=== PATIENT | female | born 1975 | race Caucasian/White ===

== ENCOUNTER 2017-11-08 15:36 | Emergency (ER) | payer SELFPAY ==
[2017-11-08] MEDS ORDERED: HYDROMORPHONE HCL INJ/PF 2 MG/ML AMPULE IV ONE (15:59)
[2017-11-08] MEDS ORDERED: ONDANSETRON HCL INJ/PF 4 MG/2 ML SDV IV ONE (15:59)
[2017-11-08] MEDS ORDERED: KETOROLAC TROMETHAMINE INJ/PF 30 MG/1 ML SDV IV ONE (15:59)
--- NOTE | 2017-11-08 16:00 | ER Document Report ---
ED Medical Screen (RME) - General Chief Complaint: Shoulder Pain Stated Complaint: LEFT SHOULDER/BACK PAIN Time Seen by Provider: 11/08/17 15:56 Mode of Arrival: Ambulatory Information source: Patient Notes: 42-year-old female presents with acute left chest pain, fever, chills. She was diagnosed with pneumonia on November 03 and started on doxycycline. Patient states she still spiking fevers. Patient appears uncomfortable in triage. TRAVEL OUTSIDE OF THE [place] IN LAST 30 DAYS: No - Related Data Allergies/Adverse Reactions: morphine Allergy (Verified 11/08/17 15:45) Hives Past Medical History - Social History Chew tobacco use (# tins/day): No Frequency of alcohol use: None Pulmonary Medical History: Reports: Hx Pneumonia Renal/ Medical History: Denies: Hx Peritoneal Dialysis Past Surgical History: Reports: Hx Appendectomy, Hx Section, Hx Tubal Ligation Physical Exam - Vital signs Vitals: Temp Pulse Resp BP Pulse Ox 97.7 F 90 18 140/77 H 98 11/08/17 15:49 11/08/17 15:49 11/08/17 15:49 11/08/17 15:49 11/08/17 15:49 Course - Vital Signs Vital signs: Temp Pulse Resp BP Pulse Ox 97.7 F 90 18 140/77 H 98 11/08/17 15:49 11/08/17 15:49 11/08/17 15:49 11/08/17 15:49 11/08/17 15:49
--- NOTE | 2017-11-08 16:51 | RADIOLOGY REPORT (SQ) ---
EXAM DESCRIPTION: CHEST SINGLE VIEW COMPLETED DATE/TIME: 11/08/2017 4:30 pm REASON FOR STUDY: chest pain COMPARISON: None. EXAM PARAMETERS: NUMBER OF VIEWS: One view. TECHNIQUE: Single frontal radiographic view of the chest acquired. RADIATION DOSE: NA LIMITATIONS: None. FINDINGS: LUNGS AND PLEURA: No opacities, masses or pneumothorax. No pleural effusion. MEDIASTINUM AND HILAR STRUCTURES: No masses. Contour normal. HEART AND VASCULAR STRUCTURES: Heart normal in size. Normal vasculature. BONES: No acute findings. HARDWARE: None in the chest. OTHER: No other significant finding. IMPRESSION: NO ACUTE RADIOGRAPHIC FINDING IN THE CHEST. TECHNICAL DOCUMENTATION: JOB ID: [id number] [employer]- All Rights Reserved Reading location - IP/workstation name: [email or web address]
--- NOTE | 2017-11-08 16:52 | ER Document Report ---
ED General - General Chief Complaint: Shoulder Pain Stated Complaint: LEFT SHOULDER/BACK PAIN Time Seen by Provider: 11/08/17 15:56 Mode of Arrival: Ambulatory TRAVEL OUTSIDE OF THE [place] IN LAST 30 DAYS: No - HPI Notes: 42-year-old female presents with left-sided chest pain worse with breathing and movement for the past week. She was seen in the emergency department November 03. She had unremarkable chest x-ray and had a CTA which was negative for pulmonary embolism but showed a small left pleural effusion with infiltrates. She was discharged with doxycycline. She developed a fever of 102 2 days ago. She had an episode of severe sharp chest pain today throughout her left lower chest radiating to her back that caused her to fall to the ground. Denies syncope. No cough or hemoptysis. Denies shortness of breath. Denies any similar pain in the past. No trauma or rash. No leg swelling. - Related Data Allergies/Adverse Reactions: morphine Allergy (Verified 11/08/17 15:45) Hives Past Medical History - General Information source: Patient - Social History Smoking Status: Current Every Day Smoker Chew tobacco use (# tins/day): No Frequency of alcohol use: None Family History: Reviewed & Not Pertinent Patient has suicidal ideation: No Patient has homicidal ideation: No Pulmonary Medical History: Reports: Hx Pneumonia Renal/ Medical History: Denies: Hx Peritoneal Dialysis Past Surgical History: Reports: Hx Appendectomy, Hx Section, Hx Tubal Ligation Review of Systems - Review of Systems Notes: Constitutional: Negative for fever. HENT: Negative for sore throat. Eyes: Negative for visual changes. Cardiovascular: Positive for chest pain. Respiratory: Negative for shortness of breath. Positive for pain with breathing Gastrointestinal: Negative for abdominal pain, vomiting or diarrhea. Genitourinary: Negative for dysuria. Musculoskeletal: Negative for back pain. Skin: Negative for rash. Neurological: Negative for headaches, weakness or numbness. 10 point ROS negative except as marked above and in HPI. Physical Exam - Vital signs Vitals: Temp Pulse Resp BP Pulse Ox 97.7 F 90 18 140/77 H 98 11/08/17 15:49 11/08/17 15:49 11/08/17 15:49 11/08/17 15:49 11/08/17 15:49 - Notes Notes: PHYSICAL EXAMINATION: GENERAL: Well-appearing, well-nourished. Appears uncomfortable. HEAD: Atraumatic, normocephalic. EYES: Pupils equal round and reactive to light, extraocular movements intact, conjunctiva are normal. ENT: nares patent, oropharynx clear without exudates. Moist mucous membranes. NECK: Normal range of motion, supple without lymphadenopathy LUNGS: Breath sounds clear to auscultation bilaterally and equal. No wheezes rales or rhonchi. HEART: Regular rate and rhythm, significant left anterior and posterior chest wall tenderness. No rash or crepitus. No signs of trauma ABDOMEN: Soft, nontender, normoactive bowel sounds. No guarding, no rebound. No masses appreciated. EXTREMITIES: Normal range of motion, no pitting or edema. No cyanosis. NEUROLOGICAL: Cranial nerves grossly intact. Normal speech, normal gait. Normal sensory and motor exams. PSYCH: Normal mood, normal affect. SKIN: Warm, Dry, normal turgor, no rashes or lesions noted. Course - Re-evaluation Re-evalutation: 11/08/17 18:20 Pain out of proportion to exam. Chest x-ray clear without any sign of enlarging pleural effusion. Labs unremarkable except for low potassium of 2.9. She was given potassium and magnesium. She just had a CTA so I do not believe this needs to be repeated. There is no rash to suggest shingles. No crepitus or skin changes. Will add Zithromax on top of the doxycycline that she is already taking as well as additional few days of potassium. Discussed importance of primary care follow-up. At this time will discharge with return precautions and follow-up recommendations. Verbal discharge instructions given a the bedside and opportunity for questions given. Medication warnings reviewed. Patient is in agreement with this plan and has verbalized understanding of return precautions and the need for primary care follow-up in the next 24-72 hours. Voice dictation software was used. Chart was reviewed, but errors may exist. - Vital Signs Vital signs: Temp Pulse Resp BP Pulse Ox 97.7 F 90 18 140/77 H 98 11/08/17 15:49 11/08/17 15:49 11/08/17 15:49 11/08/17 15:49 11/08/17 15:49 - Laboratory Result Diagrams: 11/08/17 16:55 11/08/17 16:55 Laboratory results interpreted by me: 11/08/17 11/08/17 16:55 16:55 Hgb 11.7 L Hct 34.0 L Potassium 2.9 L* Direct Bilirubin 0.8 H AST 45 H ALT 67 H Alkaline Phosphatase 163 H Discharge - Discharge Clinical Impression: Pleuritic chest pain, Hypokalemia Condition: Stable Disposition: HOME, SELF-CARE Instructions: Pleurisy ([facility]) Additional Instructions: Take deep breaths to prevent any further lung collapse. Take old antibiotic and new antibiotic. Check the [facility] for the [facility] of your medications. Return for any worsening or concerning symptoms. Prescriptions: Azithromycin [Zithromax 250 mg Tablet] 250 mg PO ASDIR PRN #6 tablet PRN Reason: Potassium Chloride 20 meq PO DAILY #5 tab.er.prt Tramadol HCl [Ultram] 50 mg PO Q6 PRN #10 tablet PRN Reason: Forms: Return to Work Referrals: DEONNA GELLER MD [ACTIVE STAFF] - Follow up in 3-5 days
[2017-11-08 17:16] LABS: ABSOLUTE EOSINOPHILS # (AUTO) 0.1 10^3/uL (0.0-0.6); ABSOLUTE LYMPHOCYTES (AUTO) 1.6 10^3/uL (0.5-4.7); ABSOLUTE MONOCYTES (AUTO) 0.8 10^3/uL (0.1-1.4); ABSOLUTE NEUT (AUTO) 7.2 10^3/uL (1.7-8.2); BASOPHILS % (AUTO) 0.4 % (0-2); EOSINOPHILS % (AUTO) 0.9 % (0-6); HEMOGLOBIN 11.7 g/dL (12.0-15.5); LYMPHOCYTES % (AUTO) 16.1 % (13-45); MEAN CORPUSCULAR HEMOGLOBIN 28.1 pg (27.0-33.4); MEAN CORPUSCULAR HGB CONC 34.4 g/dL (32.0-36.0); MEAN CORPUSCULAR VOLUME 82 fl (80-97); PLATELET COUNT 374 10^3/uL (150-450); RED BLOOD COUNT 4.17 10^6/uL (3.72-5.28); RED CELL DISTRIBUTION WIDTH 13.3 % (11.5-14.0); SEGMENTED NEUTROPHILS % (AUTO) 74.6 % (42-78); TOTAL CELLS COUNTED % (AUTO) 100 %; WHITE BLOOD COUNT 9.7 10^3/uL (4.0-10.5)
[2017-11-08 17:17] LABS: INTERNATIONAL RATION (INR) 0.98; PROTHROMBIN TIME 13.5 SEC (11.4-15.4)
[2017-11-08 17:29] LABS: ALANINE AMINOTRANSFERASE 67 U/L (9-52); ALBUMIN 3.5 g/dL (3.5-5.0); ALKALINE PHOSPHATASE 163 U/L (38-126); ANION GAP 12 (5-19); ASPARTATE AMINO TRANSFERASE 45 U/L (14-36); BILIRUBIN,DIRECT 0.8 mg/dL (0.0-0.4); BLOOD UREA NITROGEN 16 mg/dL (7-20); CALCIUM 9.3 mg/dL (8.4-10.2); CARBON DIOXIDE 27 mmol/L (22-30); CHLORIDE 101 mmol/L (98-107); GLUCOSE 106 mg/dL (75-110); SODIUM 140.2 mmol/L (137-145); TOTAL PROTEIN 7.2 g/dL (6.3-8.2)
[2017-11-08 17:31] LABS: POTASSIUM 2.9 mmol/L (3.6-5.0)
[2017-11-08] MEDS ORDERED: MAGNESIUM OXIDE 400 MG TABLET PO ONE (18:14)
[2017-11-08] MEDS ORDERED: POTASSIUM CHLORIDE 10 MEQ CAPSULE.ER PO ONE (18:14)
[2017-11-08 18:41] VITALS: BP 138/70
== END 2017-11-08 18:47 | disposition home or self-care (01) ==
LOC: ER 15:36
DX: R07.81 Pleurodynia (principal); E87.6 Hypokalemia; M25.512 Pain in left shoulder; J90 Pleural effusion, not elsewhere classified; R50.9 Fever, unspecified; F17.200 Nicotine dependence, unspecified, uncomplicated
CPT/HCPCS: 99284; 96374; 96375; 36415; 85025; 85610; 80053; 71045; J1885; J1170; J2405

== ENCOUNTER 2017-11-12 18:51 | Emergency (ER) | payer SELFPAY ==
--- NOTE | 2017-11-12 19:40 | RADIOLOGY REPORT (SQ) ---
EXAM DESCRIPTION: CT HEAD WITHOUT COMPLETED DATE/TIME: 11/12/2017 7:10 pm REASON FOR STUDY: numbness. possible stroke COMPARISON: None. TECHNIQUE: Axial images acquired through the brain without intravenous contrast. Images reviewed wi th bone, brain and subdural windows. Additional sagittal and coronal reconstructions were generated. Images stored on PACS. All CT scanners at this facility use dose modulation, iterative reconstruction, and/or weight based d osing when appropriate to reduce radiation dose to as low as reasonably achievable (ALARA). [facility]: Dose Right [facility]: CareDose [facility]: Dose Right [facility]: Teradose 4D [facility]: [employer] RADIATION DOSE: CT Rad equipment meets quality standard of care and radiation dose reduction techniq ues were employed. CTDIvol: 53.2 mGy. DLP: 1017 mGy-cm. mGy. LIMITATIONS: None. FINDINGS: VENTRICLES: Normal size and contour. CEREBRUM: No masses. No hemorrhage. No midline shift. No evidence for acute infarction. Normal gra y/white matter differentiation. No areas of low density in the white matter. CEREBELLUM: No masses. No hemorrhage. No alteration of density. No evidence for acute infarction. EXTRAAXIAL SPACES: No fluid collections. No masses. ORBITS AND GLOBE: No intra- or extraconal masses. Normal contour of globe without masses. CALVARIUM: No fracture. PARANASAL SINUSES: No fluid or mucosal thickening. SOFT TISSUES: No mass or hematoma. OTHER: No other significant finding. IMPRESSION: NORMAL BRAIN CT WITHOUT CONTRAST. EVIDENCE OF ACUTE STROKE: NO. COMMENT: Quality ID # [id number]: Final reports with documentation of one or more dose reduction techniques (e.g., Automated exposure control, adjustment of the mA and/or kV according to patient size, use of iterative reconstruction technique) TECHNICAL DOCUMENTATION: JOB ID: [id number] [employer]- All Rights Reserved Reading location - IP/workstation name: [email or web address]
--- NOTE | 2017-11-12 19:41 | RADIOLOGY REPORT (SQ) ---
EXAM DESCRIPTION: CHEST SINGLE VIEW COMPLETED DATE/TIME: 11/12/2017 7:12 pm REASON FOR STUDY: NUMBNESS, POSSIBLE STROKE COMPARISON: 11/08/2017 EXAM PARAMETERS: NUMBER OF VIEWS: One view. TECHNIQUE: Single frontal radiographic view of the chest acquired. RADIATION DOSE: NA LIMITATIONS: None. FINDINGS: LUNGS AND PLEURA: No opacities, masses or pneumothorax. No pleural effusion. MEDIASTINUM AND HILAR STRUCTURES: No masses. Contour normal. HEART AND VASCULAR STRUCTURES: Heart normal in size. Normal vasculature. BONES: No acute findings. HARDWARE: None in the chest. OTHER: No other significant finding. IMPRESSION: NO ACUTE RADIOGRAPHIC FINDING IN THE CHEST. TECHNICAL DOCUMENTATION: JOB ID: [id number] [employer]- All Rights Reserved Reading location - IP/workstation name: [email or web address]
--- NOTE | 2017-11-12 20:36 | ER Document Report ---
ED General - General Chief Complaint: Numbness Stated Complaint: NUMBNESS Time Seen by Provider: 11/12/17 19:46 Notes: Patient is a 42-year-old female with out chronic medical problems, recently started on doxycycline and azithromycin for possible left lower lobe pneumonia, who presents with complaints of numbness below the level of her chest as well as inability to walk due to severe left lower extremity weakness. She states that the symptoms have been present since she woke up this morning and have been getting progressively worse. She denies any history of similar symptoms in the past. Nothing improves or worsens her symptoms. She also notes that she has been unable to urinate and feels like her bladder is full and extremely uncomfortable. She notes a throbbing, aching pain to her pelvic region. She also notes that she has been unable to have a bowel movement today. She has not contacted her general doctor regarding today's concerns. She denies fever or constitutional symptoms. She has remote history of IV drug use but denies any use over the last 1 year. TRAVEL OUTSIDE OF THE [place] IN LAST 30 DAYS: No - Related Data Allergies/Adverse Reactions: morphine Allergy (Verified 11/08/17 15:45) Hives Past Medical History - General Information source: Patient - Social History Smoking Status: Former Smoker Chew tobacco use (# tins/day): No Frequency of alcohol use: None Drug Abuse: None Lives with: Family Family History: Reviewed & Not Pertinent Patient has suicidal ideation: No Patient has homicidal ideation: No Pulmonary Medical History: Reports: Hx Pneumonia Renal/ Medical History: Denies: Hx Peritoneal Dialysis Past Surgical History: Reports: Hx Appendectomy, Hx Section, Hx Tubal Ligation Review of Systems - Review of Systems Notes: Constitutional: Negative for fever. HENT: Negative for sore throat. Eyes: Negative for visual changes. Cardiovascular: Negative for chest pain. Respiratory: Negative for shortness of breath. Gastrointestinal: Negative for abdominal pain, vomiting or diarrhea. Genitourinary: Negative for dysuria. Musculoskeletal: Positive for low back pain Skin: Negative for rash. Neurological: Positive for numbness below the level of the nipples, severe left lower extremity weakness, unable to walk 10 point ROS negative except as marked above and in HPI. Physical Exam - Vital signs Vitals: Temp Pulse BP Pulse Ox 98.0 F 113 H 102/62 91 L 11/12/17 19:00 11/12/17 19:00 11/12/17 19:00 11/12/17 19:00 Notes: PHYSICAL EXAMINATION: GENERAL: Appears quite uncomfortable, anxious HEAD: Atraumatic, normocephalic. EYES: Pupils equal round and reactive to light, extraocular movements intact, sclera anicteric, conjunctiva are normal. ENT: nares patent, oropharynx clear without exudates. Moist mucous membranes. NECK: Normal range of motion, supple without lymphadenopathy LUNGS: Breath sounds clear to auscultation bilaterally and equal. No wheezes rales or rhonchi. HEART: Regular rate and rhythm without murmurs ABDOMEN: Soft, nontender, normoactive bowel sounds. No guarding, no rebound. No masses appreciated. EXTREMITIES: Normal range of motion, no pitting or edema. No cyanosis. NEUROLOGICAL: Complete loss of sensation that is present in both lower extremities and actually is present from the nipple level down. On needle testing I did apply a 18-gauge needle to the patient's skin along her bilateral lower extremities and she had no sensation to that stimulus in any region of either leg. She has 2+ patellar on the left, 2+ on the right. On strength testing she has 4- out of 5 distal and proximal in the right lower, no effort on the left. 5/5 bilateral biceps triceps strenght. Bedside ultrasound showed a very prominent bladder. Rectal exam without any tone. Saddle anesthesia is present. PSYCH: Moderately anxious SKIN: Warm, Dry, normal turgor, no rashes or lesions noted. Course - Re-evaluation Re-evalutation: 11/12/17 20:33 Patient presents with acute urinary retention, unable to walk, left worse than right lower externally weakness. She has complete loss of sensation that is present in both lower extremities and actually is present from the nipple level down. On needle testing I did apply a 18-gauge needle to the patient's skin along her bilateral lower extremities and she had no sensation to that stimulus. She denied any apparent pain and did not appear to have any response on facial grimacing. She has 2+ patellar brisk reflex on the left, 2+ on the right. On strength testing she has 4- out of 5 distal and proximal in the right lower, no effort on the left. Bedside ultrasound showed a very prominent bladder and patient states that she has been unable to urinate all day. Rectal exam without any tone. Saddle anesthesia is present. Extremely concerned for an acute thoracic or lumbar spinal compression more concerning for thoracic given the level of her sensory loss. The asymmetric nature of her weakness in the bilateral lower extremities would be quite atypical however for a spinal lesion and an MRI of her brain will also be obtained. The patient has a remote history of IV drug use but with family out of the room she is adamant that she has not used in over a year. She was recently diagnosed with a possible pneumonia based on a CT of her chest and is currently on antibiotics. Guillain- Oglesby syndrome would also be in the differential. Will obtain MRIs first and if these are unremarkable plan for a lumbar puncture. She will require transfer to a facility with neurology. 11/13/17 00:39 I have reassessed the patient on multiple occasions, her neurologic exam remains unchanged. Her MRI of the L-spine is overall unremarkable as is her MRI of her head unfortunately we were unable to complete the MRI of the thoracic spine due to patient movement. Lumbar puncture was completed and is notable for bright yellow CSF but is otherwise unremarkable. Patient tolerate the procedure well without any complication. I have discussed this case with the neurologist, at [facility] who is uncertain of the etiology of her presentation. Awaiting lumbar puncture results. The patient has been accepted at [facility] for transfer. 11/13/17 01:58 Transport has arrived for patient transfer. She remains hemodynamically within normal limits. CSF results continue to be pending. She is stable for transport at this time however. 11/13/17 02:38 Patient's CSF has come back with marked abnormalities in protein elevation close to one million. Elevated WBC and RBC. These results have been communicated to [facility]. 11/13/17 02:42 - Vital Signs Vital signs: Temp Pulse Resp BP Pulse Ox 98.0 F 111 H 20 150/81 H 100 11/12/17 19:00 11/13/17 02:12 11/13/17 02:12 11/13/17 02:12 11/13/17 02:12 - Laboratory Result Diagrams: 11/12/17 19:26 11/12/17 19:26 Laboratory results interpreted by me: 11/12/17 11/12/17 11/13/17 19:26 19:26 00:18 Hct 35.0 L Plt Count 563 H Sodium 136.9 L Chloride 94 L Carbon Dioxide 31 H BUN 25 H AST 55 H ALT 60 H Alkaline Phosphatase 176 H CSF WBC 153 H CSF Glucose CSF Total Protein 11/13/17 11/13/17 00:18 00:18 Hct Plt Count Sodium Chloride Carbon Dioxide BUN AST ALT Alkaline Phosphatase CSF WBC 224 H CSF Glucose 24 L CSF Total Protein 155189 H - Diagnostic Test Radiology reviewed: Reports reviewed - EKG Interpretation by Me Additional EKG results interpreted by me: 11/13/17 02:41 Sinus rhythm. Rate 99. No ST elevations or depressions. QTC 468. Procedures - Lumbar Puncture Lumbar puncture Consent obtained: Yes - Verbal Lumbar puncture pre-procedure: Sterile PPE donned, Chloraprep applied, Sterile drapes applied Patient position: Lying Needle size: 22 Lumbar puncture location: l4-5 Anesthetic type: 1% Lidocaine w/epi mL's of anesthetic: 8 Amount/type of drainage: 6 cc, yellow CSF Number of attempts: 1 Complications: No Critical Care Note - Critical Care Note Total time excluding time spent on procedures (mins): 40 Comments: Critical care time spent obtaining history from patient or surrogate, discussions with consultants, development of treatment plan with patient or surrogate, evaluation of patient's response to treatment, examination of patient , ordering and performing treatments and interventions, ordering and review of laboratory studies, re-evaluation of patient's condition, ordering and review of radiographic studies and review of old charts Discharge - Discharge Clinical Impression: Left leg weakness, Loss of sensation, Urinary retention, Loss of control of rectal sphincter Condition: Fair Disposition: [facility]
[2017-11-12 21:15] LABS: ABSOLUTE EOSINOPHILS # (AUTO) 0.2 10^3/uL (0.0-0.6); ABSOLUTE LYMPHOCYTES (AUTO) 3.7 10^3/uL (0.5-4.7); ABSOLUTE MONOCYTES (AUTO) 0.5 10^3/uL (0.1-1.4); ABSOLUTE NEUT (AUTO) 5.1 10^3/uL (1.7-8.2); BASOPHILS % (AUTO) 0.3 % (0-2); EOSINOPHILS % (AUTO) 1.7 % (0-6); HEMOGLOBIN 12.1 g/dL (12.0-15.5); LYMPHOCYTES % (AUTO) 38.7 % (13-45); MEAN CORPUSCULAR HEMOGLOBIN 28.7 pg (27.0-33.4); MEAN CORPUSCULAR HGB CONC 34.7 g/dL (32.0-36.0); MEAN CORPUSCULAR VOLUME 83 fl (80-97); MONOCYTES % (AUTO) 5.5 % (3-13); PLATELET COUNT 563 10^3/uL (150-450); RED BLOOD COUNT 4.23 10^6/uL (3.72-5.28); RED CELL DISTRIBUTION WIDTH 13.8 % (11.5-14.0); SEGMENTED NEUTROPHILS % (AUTO) 53.8 % (42-78); TOTAL CELLS COUNTED % (AUTO) 100 %; WHITE BLOOD COUNT 9.5 10^3/uL (4.0-10.5)
[2017-11-12] MEDS ORDERED: DIAZEPAM INJ 10 MG/2 ML DISP.SYRIN IV ONE (21:18)
[2017-11-12] MEDS ORDERED: KETOROLAC TROMETHAMINE INJ/PF 30 MG/1 ML SDV IV ONE (21:18)
[2017-11-12 21:26] LABS: ALANINE AMINOTRANSFERASE 60 U/L (9-52); ALBUMIN 3.8 g/dL (3.5-5.0); ALKALINE PHOSPHATASE 176 U/L (38-126); ANION GAP 12 (5-19); ASPARTATE AMINO TRANSFERASE 55 U/L (14-36); BILIRUBIN,DIRECT 0.4 mg/dL (0.0-0.4); BILIRUBIN,TOTAL 0.7 mg/dL (0.2-1.3); BLOOD UREA NITROGEN 25 mg/dL (7-20); CALCIUM 9.6 mg/dL (8.4-10.2); CARBON DIOXIDE 31 mmol/L (22-30); CHLORIDE 94 mmol/L (98-107); GLUCOSE 98 mg/dL (75-110); POTASSIUM 3.6 mmol/L (3.6-5.0); SODIUM 136.9 mmol/L (137-145); TOTAL PROTEIN 8.2 g/dL (6.3-8.2)
[2017-11-12] MEDS ORDERED: LIDOCAINE 1%/EPINEPHRINE INJ 20 ML VIAL INJ ONE (23:02)
--- NOTE | 2017-11-12 23:19 | RADIOLOGY REPORT (SQ) ---
PROCEDURE: CLINICAL HISTORY: 42 years Female bilateral leg loss of sensation, urinary retention COMPLETED DATE/TME: 11/12/2017 20:28 COMPARISON: None. TECHNIQUE: Multiplanar and multisequence imaging obtained through the lumbar spine with and without IV contrast. FINDINGS: Motion artifact limits several of the image sequences. There is normal alignment and lordosis. There is loss of height and signal at the L4-5 and L5-S1 disc interspaces consistent with disc desiccation. The conus appears unremarkable and ends at the level of L1-L2. L1-L2, L2-L3 levels appear unremarkable. L3-4: Mild facet arthropathy. No significant central canal or neural foraminal stenosis is noted. L4-5: There appears to be mild generalized bulging of the disc and mild facet arthropathy. There is no significant central canal stenosis. No significant neural foraminal stenosis. L5-S1: There is generalized disc bulging with bilateral neural foraminal narrowing which appears moderate. There may be a broad-based central protrusion inferiorly. This does not appear to result in significant central canal stenosis. No evidence of abnormal enhancement. IMPRESSION: Patient artifact degrades the image sequences Mild degenerative disc disease with generalized bulging of the disc at L5-S1 and possible small broad-based central protrusion. There is moderate bilateral neural foraminal stenosis without significant central canal stenosis There appears to be fibrofatty infiltration of the marrow without evidence to suggest marrow edema
--- NOTE | 2017-11-12 23:23 | RADIOLOGY REPORT (SQ) ---
EXAM DESCRIPTION: MRI of the brain without IV contrast CLINICAL HISTORY: bilateral leg loss of sensation, urinary retention COMPLETED DATE/TME: 11/12/2017 20:28 COMPARISON: None TECHNIQUE: Multiplanar images of the brain were obtained without the administration of intravenous contrast FINDINGS: Ventricles and sulci appear within normal limits for the patient's age. No evidence of midline shift or mass effect. No evidence of restricted diffusion to suggest area of acute infarct. Motion artifact limits several of the image sequences. No evidence of extra axial fluid collection. No significant abnormal parenchymal signal noted. The distal left vertebral artery appears dominant. No significant mucosal thickening or air-fluid levels in the paranasal sinuses. IMPRESSION: No evidence to suggest acute infarct No acute abnormalities.
[2017-11-13 01:06] LABS: GLUCOSE,CSF 24 mg/dL (40-70)
[2017-11-13] MEDS ORDERED: FENTANYL CITRATE INJ/PF 100 MCG/2 ML AMPUL IV PRN (01:40)
[2017-11-13 01:59] LABS: APPEARANCE ALL TUBES CLEAR; APPEARANCE TUBE 1 CLEAR; APPEARANCE TUBE 2 CLEAR; APPEARANCE TUBE 3 CLEAR; APPEARANCE TUBE 4 CLEAR; COLOR ALL TUBES YELLOW; COLOR TUBE 1 YELLOW; COLOR TUBE 2 YELLOW; COLOR TUBE 3 YELLOW; COLOR TUBE 4 YELLOW; CSF TUBE NUMBER 1
[2017-11-13 02:03] LABS: RED BLOOD CELL,CSF 233 /uL (0-10)
[2017-11-13 02:05] LABS: WHITE BLOOD CELL,CSF 224 /uL (0-5)
[2017-11-13 02:27] VITALS: BP 150/81
[2017-11-13 02:32] LABS: APPEARANCE ALL TUBES CLEAR; APPEARANCE TUBE 1 CLEAR; APPEARANCE TUBE 2 CLEAR; APPEARANCE TUBE 3 CLEAR; APPEARANCE TUBE 4 CLEAR; COLOR ALL TUBES YELLOW; COLOR TUBE 1 YELLOW; COLOR TUBE 2 YELLOW; COLOR TUBE 3 YELLOW; COLOR TUBE 4 YELLOW; CSF TUBE NUMBER 4
[2017-11-13 02:33] LABS: RED BLOOD CELL,CSF 11 /uL (0-10)
[2017-11-13 02:34] LABS: WHITE BLOOD CELL,CSF 153 /uL (0-5)
--- NOTE | 2017-11-13 10:15 | EKG REPORT ---
SEVERITY:- BORDERLINE ECG - SINUS RHYTHM BORDERLINE T ABNORMALITIES, ANT-LAT LEADS : Confirmed by: Karsten Kwan MD 13-Nov-2017 10:15:15
[2017-11-15 10:24] LABS: PROTEIN,CSF 4682 mg/dL (12-60)
== END 2017-11-13 09:06 | disposition short-term general hospital (02) ==
LOC: ER 18:51
DX: M62.81 Muscle weakness (generalized) (principal); R33.9 Retention of urine, unspecified; R15.9 Full incontinence of feces; R20.0 Anesthesia of skin; M54.5 Low back pain; Z87.891 Personal history of nicotine dependence
CPT/HCPCS: 93005; 99291; 96374; 36415; 87040; 87070; 87205; 83605; 83916 ×2; 85025; 89050; 82945; 84157; 80053; 72158; 70551; 71045; 70450; 93010; J3360; J3010; J3490

== ENCOUNTER 2019-09-20 09:24 | Emergency (ER) | payer MEDICAID ==
--- NOTE | 2019-09-20 10:19 | ER Document Report ---
ED Medical Screen (RME) - General Chief Complaint: Urinary Problem Stated Complaint: URINARY PAIN/BURING Time Seen by Provider: 09/20/19 10:13 TRAVEL OUTSIDE OF THE [place] IN LAST 30 DAYS: No - HPI Notes: 09/20/19 10:16 43-year-old female presents emergency room for complaints of urgency frequency and burning with urination as well as feeling her heart race prior to coming to the emergency room today. Patient states she typically has pressures of 120/80 and has a normal heart rate. Patient states that she has been trying cranberry juice to help with her urinary symptoms. Denies any history of palpitations, thyroid issues, chest pain shortness of breath. Patient states she does have a history of anxiety. Denies smoking, denies any new medications, denies drinking no more than her usual 1 cup of coffee that she drinks daily. Denies any lower back pain, fevers chills, nausea vomiting diarrhea, abdominal pain. Patient states this feels similar to her previous UTIs in the past, states she is only had a handful. Patient was waiting in the waiting room for 45 minutes prior to being seen by this provider recheck vitals by this provider, heart rate 115, blood pressure 163/64, 100% on room air, afebrile I have greeted and performed a rapid initial assessment of this patient. A comprehensive ED assessment and evaluation of the patient, analysis of test results and completion of the medical decision making process will be conducted by additional ED providers. PHYSICAL EXAMINATION: GENERAL: Well-appearing, well-nourished and in no acute distress. CV: sinus tachycardia LUNGS: No respiratory distress abd: no cva tenderess bilaterally Musculoskeletal: Normal range of motion NEUROLOGICAL: Normal speech, normal gait. SKIN: Warm, Dry, normal turgor, no rashes or lesions noted. 09/20/19 10:18 - Related Data Allergies/Adverse Reactions: No Known Allergies Allergy (Verified 09/20/19 10:14) Past Medical History Pulmonary Medical History: Reports: Hx Pneumonia Renal/ Medical History: Denies: Hx Peritoneal Dialysis Past Surgical History: Reports: Hx Appendectomy, Hx Section, Hx Tubal Ligation Physical Exam - Vital signs Vitals: Temp Pulse Resp BP Pulse Ox 98.6 F 124 H 14 153/105 H 97 09/20/19 09:29 09/20/19 09:29 09/20/19 09:29 09/20/19 09:29 09/20/19 09:29 Course - Vital Signs Vital signs: Temp Pulse Resp BP Pulse Ox 98.6 F 124 H 14 153/105 H 97 09/20/19 09:29 09/20/19 09:29 09/20/19 09:29 09/20/19 09:29 09/20/19 09:29
[2019-09-20 10:43] LABS: ABSOLUTE EOSINOPHILS # (AUTO) 0.1 10^3/uL (0.0-0.6); ABSOLUTE LYMPHOCYTES (AUTO) 2.7 10^3/uL (0.5-4.7); ABSOLUTE MONOCYTES (AUTO) 0.6 10^3/uL (0.1-1.4); ABSOLUTE NEUT (AUTO) 2.7 10^3/uL (1.7-8.2); BASOPHILS % (AUTO) 0.4 % (0-2); EOSINOPHILS % (AUTO) 2.3 % (0-6); HEMATOCRIT 32.8 % (36.0-47.0); HEMOGLOBIN 10.5 g/dL (12.0-15.5); LYMPHOCYTES % (AUTO) 43.7 % (13-45); MEAN CORPUSCULAR HEMOGLOBIN 21.1 pg (27.0-33.4); MEAN CORPUSCULAR VOLUME 66 fl (80-97); MONOCYTES % (AUTO) 9.8 % (3-13); PLATELET COUNT 337 10^3/uL (150-450); RED BLOOD COUNT 4.99 10^6/uL (3.72-5.28); RED CELL DISTRIBUTION WIDTH 18.5 % (11.5-14.0); SEGMENTED NEUTROPHILS % (AUTO) 43.8 % (42-78); TOTAL CELLS COUNTED % (AUTO) 100 %; WHITE BLOOD COUNT 6.2 10^3/uL (4.0-10.5)
[2019-09-20 11:04] LABS: ALKALINE PHOSPHATASE 97 U/L (38-126); ANION GAP 7 (5-19); ASPARTATE AMINO TRANSFERASE 35 U/L (14-36); BILIRUBIN,TOTAL 0.7 mg/dL (0.2-1.3); BLOOD UREA NITROGEN 19 mg/dL (7-20); CALCIUM 9.2 mg/dL (8.4-10.2); CARBON DIOXIDE 25 mmol/L (22-30); CHLORIDE 106 mmol/L (98-107); GLUCOSE 106 mg/dL (75-110); POTASSIUM 3.7 mmol/L (3.6-5.0); TOTAL PROTEIN 7.8 g/dL (6.3-8.2)
[2019-09-20 12:08] LABS: AMORPHOUS SEDIMENT,URINE 1+ /HPF; APPEARANCE,URINE TURBID; BILIRUBIN,URINE SMALL (NEGATIVE); COLOR,URINE YELLOW; GLUCOSE, URINE NEGATIVE (NEGATIVE); KETONES,URINE TRACE mg/dL (NEGATIVE); LEUKOCYTE ESTERASE,URINE MODERATE (NEGATIVE); NITRITE,URINE NEGATIVE (NEGATIVE); PROTEIN,URINE 100 mg/dL (NEGATIVE)
--- NOTE | 2019-09-20 12:12 | ER Document Report ---
ED General - General Chief Complaint: Pain With Urination Stated Complaint: URINARY PAIN/BURING Time Seen by Provider: 09/20/19 10:13 Mode of Arrival: Ambulatory Information source: Patient TRAVEL OUTSIDE OF THE [place] IN LAST 30 DAYS: No - HPI Notes: Patient presents with dysuria and frequency for approximate 3 days. She states she has not had any recent intercourse. She is not concerned about a sexually transmitted disease. She states that the pain is mainly with urination. It is worse when she urinates and better she does not. She has had no significant abdominal pain. There is no radiation of this pain. It is a sharp pain and intermittent. - Related Data Allergies/Adverse Reactions: No Known Allergies Allergy (Verified 09/20/19 10:14) Past Medical History - General Information source: Patient - Social History Smoking Status: Former Smoker Chew tobacco use (# tins/day): No Frequency of alcohol use: None Drug Abuse: None Family History: Reviewed & Not Pertinent Patient has homicidal ideation: No Pulmonary Medical History: Reports: Hx Pneumonia Renal/ Medical History: Denies: Hx Peritoneal Dialysis Past Surgical History: Reports: Hx Appendectomy, Hx Section, Hx Tubal Ligation Review of Systems - Review of Systems Constitutional: denies: Chills, Fever Cardiovascular: denies: Chest pain, Palpitations Respiratory: denies: Cough, Short of breath -: Yes All other systems reviewed and negative Physical Exam - Vital signs Vitals: Temp Pulse Resp BP Pulse Ox 98.6 F 124 H 14 153/105 H 97 09/20/19 09:29 09/20/19 09:29 09/20/19 09:29 09/20/19 09:29 09/20/19 09:29 Interpretation: Hypertensive, Other - Patient was tachycardic at triage but currently her pulse is 88. - General General appearance: Appears well, Alert - HEENT Head: Normocephalic, Atraumatic Eyes: Normal Pupils: PERRL - Respiratory Respiratory status: No respiratory distress Chest status: Nontender Breath sounds: Normal Chest palpation: Normal - Cardiovascular Rhythm: Regular Heart sounds: Normal auscultation Murmur: No - Abdominal Inspection: Normal Distension: No distension Bowel sounds: Normal Tenderness: Nontender Organomegaly: No organomegaly - Back Back: Normal, Nontender - Extremities General upper extremity: Normal inspection, Nontender, Normal color, Normal ROM, Normal temperature General lower extremity: Normal inspection, Nontender, Normal color, Normal ROM, Normal temperature, Normal weight bearing. No: Sonja's sign - Neurological Neuro grossly intact: Yes Cognition: Normal Orientation: AAOx4 [place] Coma Scale Eye Opening: Spontaneous [place] Coma Scale Verbal: Oriented [place] Coma Scale Motor: Obeys Commands [place] Coma Scale Total: 15 Speech: Normal Motor strength normal: LUE, RUE, LLE, RLE Sensory: Normal - Psychological Associated symptoms: Normal affect, Normal mood - Skin Skin Temperature: Warm Skin Moisture: Dry Skin Color: Normal Course - Vital Signs Vital signs: Temp Pulse Resp BP Pulse Ox 98.6 F 113 H 15 158/92 H 98 09/20/19 09:29 09/20/19 10:14 09/20/19 11:13 09/20/19 11:13 09/20/19 11:13 - Laboratory Result Diagrams: 09/20/19 10:25 09/20/19 10:25 Laboratory results interpreted by me: 09/20/19 09/20/19 10:25 10:25 Hgb 10.5 L Hct 32.8 L MCV 66 L MCH 21.1 L RDW 18.5 H Urine Protein 100 H Urine Ketones TRACE H Urine Blood LARGE H Urine Bilirubin SMALL H Urine Urobilinogen 2.0 H Ur Leukocyte Esterase MODERATE H Discharge - Discharge Clinical Impression: UTI (urinary tract infection) Qualifiers: Urinary tract infection type: site unspecified Hematuria presence: without hematuria Qualified Code(s): N39.0 - Urinary tract infection, site not specified Condition: Stable Disposition: HOME, SELF-CARE Instructions: Urinary Tract Infection ([facility]), Nitrofurantoin ([facility]) Additional Instructions: call your primary doctor as soon as possible to arrange follow up Prescriptions: Nitrofurantoin Monohyd/M-Cryst [Macrobid 100 mg Capsule] 100 mg PO BID 7 Days #14 cap Phenazopyridine HCl [Pyridium 200 mg Tablet] 200 mg PO TID 3 Days #9 tablet Forms: Return to Work Referrals: [facility] [Provider Group] - Follow up as needed
[2019-09-20 12:24] VITALS: BP 150/81
--- NOTE | 2019-09-20 13:18 | EKG REPORT ---
SEVERITY:- NORMAL ECG - SINUS RHYTHM : Confirmed by: Veto Levine MD 20-Sep-2019 13:17:47
== END 2019-09-20 12:24 | disposition home or self-care (01) ==
LOC: ER 09:24
DX: N39.0 Urinary tract infection, site not specified (principal); Z98.51 Tubal ligation status
CPT/HCPCS: 36415; 80053; 81001; 81025; 84443; 85025; 93005; 93010; 99283